=== PATIENT | female | born 1970 | race Caucasian/White ===

== ENCOUNTER 2024-11-12 18:21 | Observation (INO) | payer OTHER, SELFPAY ==
[2024-11-12 12:55] VITALS: BP 120/65
[2024-11-12 13:13] LABS: % Immature Granulocytes 0.2 % (0-0.5); % Lymphocytes 29.7 % (20.5-51.1); % Monocytes 8.5 % (1.7-9.3); % Neutrophils 58.6 % (42.2-75.2); Absolute Basophils 0.1 10^3/uL (0-0.2); Absolute Eosinophils 0.1 10^3/uL (0-0.7); Absolute Lymphocytes 1.5 10^3/uL (1.2-3.4); Absolute Monocytes 0.4 10^3/uL (0.1-0.6); Hematocrit 38.8 % (37.0-47.0); Hemoglobin 13.1 g/dL (12.0-16.0); Mean Corp Hgb Conc. 33.8 g/dL (33.0-37.0); Mean Corpuscular Hgb 29.8 pg (27.0-31.0); Mean Corpuscular Volume 88.2 fL (81.0-99.0); Mean Platelet Volume 8.8 fL (7.4-10.4); Nucleated Red Blood Cells % 0 %; Platelet Count 309 10^3/uL (130-400); Red Cell Dist. Width 12.3 % (11.5-14.5); White Blood Cell Count 5.1 10^3/uL (4.8-10.8)
[2024-11-12 13:26] LABS: ALT (SGPT) 17 U/L (0-35); AST (SGOT) 22 U/L (14-36); Albumin 4.2 g/dl (3.5-5.0); Alkaline Phosphatase 47 U/L (38-126); Blood Urea Nitrogen 12 mg/dl (7-17); Calcium 9.4 mg/dl (8.4-10.2); Carbon Dioxide 24 mmol/L (22-30); Chloride 107 mmol/L (98-107); Glucose 95 mg/dl (70-99); HCG, Serum Qualitative Screen Negative; Potassium 4.4 mmol/L (3.5-5.1); Sodium 139 mmol/L (135-145); Total Bilirubin 0.7 mg/dl (0.2-1.3); Total Protein 6.7 g/dl (6.3-8.2); eGFR > 60.00
[2024-11-12 14:27] VITALS: BP 116/50
--- NOTE | 2024-11-12 14:28 | ED.GENMED ---
History of Present Illness
<VIANNEY Pack - Last Filed: 11/12/24 18:52>
General
Chief Complaint: Dizziness
Source: patient
Exam Limitations: none
Time Seen by Provider: 11/12/24 14:08
History of Present Illness
History of Present Illness:
53 y/o F patient with a PMH of migraines and acid reflux presenting to the ED c/o dizziness x 2 days, says dizzy sensation occurred suddenly at work after feeling a pain between her shoulder blades. Pt reports a sensation of all over numbness since
that episode. States she is also getting a pain above her right eye that comes and goes and makes her want to squint. Pt states nothing improves the dizziness, she tried taking aspirin yesterday with no relief, states it is worse with her eyes
closed. Romberg test positive on physical exam. She reports feeling foggy but denies confusion. Last migraine in August, LMP: 10/04/24. Denies syncope, LOC, falling, imbalance, abnormal gait,visual changes, hearing loss, tinnitus, palpitations,
chest pain, N/V/D, abdominal pain, weakness, loss of sensation.
Past History
<VIANNEY Pack - Last Filed: 11/12/24 18:52>
Past History
ED Past Medical History: GERD and Other (Migraines)
Social History
Tobacco: Former smoker
Alcohol: Occasional
Drug: None
Review of Systems
<VIANNEY Pack - Last Filed: 11/12/24 18:52>
Review of Systems
Constitutional: Reports no symptoms
EENT: Reports no symptoms
Respiratory: Reports no symptoms
Cardiac: Reports chest pain (slight, radiating from back)
ABD/GI: Reports no symptoms
: Reports no symptoms
Musculoskeletal: Reports back pain
Skin: Reports no symptoms
Neurological: Reports dizzy, headache and numbness
Endocrine: Reports no symptoms
Hematologic/Lymphatic: Reports no symptoms
Phy Exam
<Ildefonso Chávez [facility] - Last Filed: 11/12/24 18:52>
General Physical Exam
General Presentation: well appearing and no apparent distress
General age: appears stated age
General Skin: warm
General Habitus: normal
General Mental: alert
General Hydration: appears well hydrated
Eye Exam
Eye Exam: conjunctiva normal
Pupil Exam: Bilateral: round and reactive
Pupil and Lens Exam: round pupil: Bilateral
Cardiovascular Exam
Cardiovascular Exam: regular rate/rhythm, no gallop, no murmur and normal peripheral pulses
Pulmonary Exam
Pulmonary Exam: lungs clear and no respiratory distress
Gastrointestinal Exam
Gastrointestinal Exam: normal bowel sounds, non tender and no pulsatile mass
Neurological Exam
Neurological Exam: alert, oriented x3, no sensory deficits, normal gait and other (+ romberg)
Mental
Describe Speech: normal speech
Cranial
Cranial Nerves: normal
Cerebellar
Cerebellar Function: normal finger to nose and normal heel to koenig
Course
<Ildefonso Chávez [facility] - Last Filed: 11/12/24 18:52>
Orders/Labs/Results
Orders:
Orders
11/12/24 12:58
Electrocardiogram (*1) Urgent
Reason for Study: Vertigo / Dizzy
EKG- Treatment ONCE
Test Result ONCE
11/12/24 13:04
Complete Blood Count/With Diff Urgent
Comprehensive Metabolic Panel Urgent
HCG, Serum Qualitative Screen Urgent
11/12/24 14:58
CT Chest Angio W/wo Iv Contras Urgent
Comment:
Reason For Exam: Sudden scapular pain with disequilibrium
CT Head W/o Iv Contrast Urgent
Comment:
Reason For Exam: Scapular pain/disequilibrium
CT Neck Angio W/wo Iv Contrast Urgent
Comment:
Reason For Exam: Scapular pain/disequilibrium
IV Insert/Care/Rem.- Treatment PRN
0.9% Sodium Chloride 500 ml [Nss] 500 ml IV BOLUS
11/12/24 17:55
Admit/Transfer Patient As Directed
Co-Sign Provider:
Level of Care: Observation services
Assign to:: Telemetry
Physician / Group: epi camejo
Diagnosis: Vertigo
Reason for Telemetry: CVA/TIA
Date to Stop Telemetry: 11/15/24
Time to Stop Telemetry: 11:00
Code Status As Directed
Resuscitation Status: Full Code
PRN Pain Medication Management As Directed
May give lesser potent ordered pain med per pt: Yes
preference::
Protocol:: Medication orders for pain may be administered in a
manner that supports deferring to patient preference
when the pt is:
- Requesting an ordered lesser potent pain medication.
Least to most potent pain medications are defined
as: acetaminophen < NSAID < tramadol < opioids
(morphine, oxycodone, hydromorphone).
- Requesting a lesser dose of the same medication IF
ORDERED.
- Requesting a less intrusive route of administration
if both routes are prescribed by the provider (PO <
IV).
11/15/24 11:00
DC Protocol for Telemetry ONCE
11/12/24 13:04
11/12/24 13:04
Vital Signs
Initial and Last Documented VS:
Initial Vital Signs
Temp Pulse Resp BP Pulse Ox
98.8 F 65 20 120/65 98
11/12/24 12:55 11/12/24 12:55 11/12/24 12:55 11/12/24 12:55 11/12/24 12:55
Last Documented Vital Signs
Temp Pulse Resp BP Pulse Ox
98.8 F 55 16 106/57 100
11/12/24 12:55 11/12/24 18:03 11/12/24 18:03 11/12/24 18:00 11/12/24 18:00
<Blayne Martinez MD - Last Filed: 11/12/24 18:51>
Orders/Labs/Results
Orders:
Orders
11/12/24 12:58
Electrocardiogram (*1) Urgent
Reason for Study: Vertigo / Dizzy
EKG- Treatment ONCE
Test Result ONCE
11/12/24 13:04
Complete Blood Count/With Diff Urgent
Comprehensive Metabolic Panel Urgent
HCG, Serum Qualitative Screen Urgent
11/12/24 14:58
CT Chest Angio W/wo Iv Contras Urgent
Comment:
Reason For Exam: Sudden scapular pain with disequilibrium
CT Head W/o Iv Contrast Urgent
Comment:
Reason For Exam: Scapular pain/disequilibrium
CT Neck Angio W/wo Iv Contrast Urgent
Comment:
Reason For Exam: Scapular pain/disequilibrium
IV Insert/Care/Rem.- Treatment PRN
0.9% Sodium Chloride 500 ml [Nss] 500 ml IV BOLUS
11/12/24 17:55
Admit/Transfer Patient As Directed
Co-Sign Provider:
Level of Care: Observation services
Assign to:: Telemetry
Physician / Group: epi camejo
Diagnosis: Vertigo
Reason for Telemetry: CVA/TIA
Date to Stop Telemetry: 11/15/24
Time to Stop Telemetry: 11:00
Code Status As Directed
Resuscitation Status: Full Code
PRN Pain Medication Management As Directed
May give lesser potent ordered pain med per pt: Yes
preference::
Protocol:: Medication orders for pain may be administered in a
manner that supports deferring to patient preference
when the pt is:
- Requesting an ordered lesser potent pain medication.
Least to most potent pain medications are defined
as: acetaminophen < NSAID < tramadol < opioids
(morphine, oxycodone, hydromorphone).
- Requesting a lesser dose of the same medication IF
ORDERED.
- Requesting a less intrusive route of administration
if both routes are prescribed by the provider (PO <
IV).
11/15/24 11:00
DC Protocol for Telemetry ONCE
11/12/24 13:04
11/12/24 13:04
Vital Signs
Initial and Last Documented VS:
Initial Vital Signs
Temp Pulse Resp BP Pulse Ox
98.8 F 65 20 120/65 98
11/12/24 12:55 11/12/24 12:55 11/12/24 12:55 11/12/24 12:55 11/12/24 12:55
Last Documented Vital Signs
Temp Pulse Resp BP Pulse Ox
98.8 F 55 16 106/57 100
11/12/24 12:55 11/12/24 18:03 11/12/24 18:03 11/12/24 18:00 11/12/24 18:00
<VIANNEY Pack - Last Filed: 11/12/24 18:52>
*Critical Care Note
Total Time (30-74mins, 75-104mins- exclusive of procedures): Not Applicable
<Blayne Martinez MD - Last Filed: 11/12/24 18:51>
*Radiology
Radiology exam reviewed: radiology read reviewed (Negative CT head CT angio chest and CT neck)
*Pulse Oximetry
Patient hypoxic: no
*EKG
Interpreted by ED Provider?: Yes
Interpretation: normal
Comparison EKG: no comparison EKG present
Heart Rate: 62
Rate: normal
Rhythm: sinus
[place]: normal axis
Interval: normal interval
QRS Pattern: normal QRS
Ischemia: no ischemia
<Blayne Martinez MD - Last Filed: 11/12/24 18:51>
Update Note
Update Note:
Seen by neurology. Disequilibrium. No dissection or acute vascular issue. However recommend admission for further care
ED Attending Note
<VIANNEY Pack - Last Filed: 11/12/24 18:52>
-
Portions of this chart may have been created with voice recognition software.� Occasional wrong word or��sound alike� substitutions may have occurred due to the inherent limitations of voice recognition software.
<Blayne Martinez MD - Last Filed: 11/12/24 18:51>
ED Attending Note
Patient seen and examined by attending physician: Yes
I performed the substantive portion of visit, reviewed & personally made and approve the management plan that is documented in note by myself or MIRTA.: Yes
ED Attending Note:
Patient seen with student. 53-year-old female healthy. Sudden onset of scapular pain while at work last evening. Nontraumatic. This did not last long but was followed by disequilibrium and describing some episodes of almost near syncope. Today
the scapular pain is resolved but she has had ongoing episodes of disequilibrium feeling like her balance is off and intermittent tingling of her arms and legs.
GENERAL: Alert and oriented in no apparent distress
EYE: Orbits normal.
NECK: Supple, no significant adenopathy.
ENT: Pharynx without erythema
CARDIAC: Regular rate and rhythm without any obvious murmurs.
LUNGS: Clear breath sounds,normal
ABDOMEN: Soft, without focal tenderness or distention
NEUROLOGICAL: Alert and oriented , grossly non-focal. Blfofb-hu-icel normal. No drift. Dovb-co-jiml normal. Gait normal. Questionable slightly positive Romberg.
SKIN: Warm and dry, no rash or lesion, no discoloration, skin intact.
MUSCULOSKELETAL: No edema,no deformity.Good color
PSYCH: Normal and appropriate interaction.
Impression. Sudden scapular pain. Warrants dissection rule out. Will also evaluate the vascular system of the neck. Discussed with neurology.
Discharge Plan
Departure
Patient Disposition: Admit
Date of Disposition: 11/12/24
Time of Disposition: 17:37
Presentation/result/management discussed w/ accepting MD/DO: Neurology
Discharge Problem:
Disequilibrium, Transient scapular pain
Interventions
Interventions:
*Risk Screen - Suicide Last Done: 11/12/24 12:55
*General Assessment Last Done: 11/12/24 12:55
*Neglect/Abuse Screening Last Done: 11/12/24 14:29
*ED- Fall Risk Assessment Last Done: 11/12/24 14:09
*ED COVID-19 Vaccine History Last Done: 11/12/24 14:09
ED- Neurological Assessment Last Done: 11/12/24 14:30
ED Swallowing Screen Last Done: 11/12/24 14:30
--- NOTE | 2024-11-12 15:04 | CON.NEURO ---
Consultation
Order
Date of Consultation: 11/12/24
Requesting Provider: Blayne Martinez M.D.
Reason for Consult: Imbalance
Neurology Consultation Note.
HPI: This is a 53-year-old right-handed woman who presented to [facility] on November 12, 2024 with multiple symptoms.
According to the patient she developed an acute sharp, stabbing pain under the left shoulder blade while picking up dinner plates. This was reportedly followed by a sensation of the room tilting, loss of balance, lightheadedness, and feeling like
she was going to pass out.
The patient reports ongoing symptoms of dizziness, lightheadedness, and intermittent numbness in fingers and toes. The numbness is described as feeling like 'bugs under my skin' before the entire hand goes numb, affecting all fingers on both hands
simultaneously. This sensation is triggered when picking up a phone. The patient also experienced extreme thirst yesterday.
The initial episode lasted on and off until about 11 PM last night. The patient took Tylenol for the headache around 6:30 PM, which provided relief within 30 minutes. However, she woke up with a mild headache this morning.
Ms. Bautista reports a history of migraines, for which she takes eletriptan. These migraines are described as feeling 'like I got stabbed in the head with a butter knife' and are accompanied by photophobia and nausea.
Concerned about her condition, the patient went to a friend's house yesterday to avoid driving. She was able to drive home around 11 PM and took a baby aspirin before bed. This morning, still feeling unwell, Ms. Bautista visited urgent care to check her
blood pressure before coming to the ER
ER VS: 120/65, 65�56, afebrile
EKG:NSR, QTc Int : 414 ms
PDMP: None
Labs:normal CBC, COMP
PMH: Migraine wo aura
PSH: C-sections, knee arthroscopies
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
FH: Son�migraine
All:NKDA
ROS: Constitutional: Negative. Negative for chills, fever and unexpected weight change.
HENT: Negative for ear pain, hearing loss, tinnitus and trouble swallowing.
Eyes: Negative. Negative for photophobia, pain and visual disturbance.
Respiratory: Negative for cough, choking and shortness of breath.
Cardiovascular: Negative for chest pain, palpitations and leg swelling.
Gastrointestinal: Negative for abdominal pain and vomiting.
Endocrine: Negative. Negative for cold intolerance.
Genitourinary: Negative for dysuria, flank pain and urgency.
Musculoskeletal: Negative for back pain, gait problem, neck pain and neck stiffness.
Skin: Negative for rash.
Allergic/Immunologic: Negative. Negative for immunocompromised state.
Neurological: Positive for imbalance, headache, dizziness, paresthesias
Psychiatric/Behavioral: Negative for behavioral problems, confusion and hallucinations.
General: Well developed. In no acute distress.
Cardio: Regular rate and rhythm without murmur. Extremities are without cyanosis or edema.
Neuro:
Mental Status: Alert, oriented to person, place, and date. Normal attention and recall. Good fund of knowledge. Follows complex requests across the midline. Comprehension, naming, and repetition intact.
Cranial Nerves: Pupils are equally round and reactive to light. EOMs full. Visual verdin full to confrontation. No ptosis. No nystagmus. V1-V3 intact to light touch and pinprick bilaterally, symmetric. Face symmetric. Normal hearing AU. The
palate elevated well. SCMs and traps 5/5. Tongue midline. No dysarthria.
Motor: Normal bulk and tone. No pronator or arm drift. Strength 5/5 throughout. No clonus.
Sensory: Normal LT
Coordination: No dysmetria or tremor.
Gait: deferred
Assessment and Plan:
I. Migraine without aura
II. Intermittent vertigo
III. Paresthesias
-fall precautions
-Please obtain brain MRI without gadolinium
-Please check ESR, CRP urine tox
-IV Toradol 30 mg, Reglan 10 mg, Benadryl 25 mg Q8h PRN for moderate to severe headache.
-PT
-Will follow
I personally reviewed all radiology and labs along with past medical records pertinent to current medical problems. Total time spent in patient care is 64 minutes.
Thank you for allowing us to participate in the care of this patient. We will continue to follow. Please do not hesitate to contact us with any questions or concerns.
Subjective/Objective
Subjective Data
Date of Service: November 12, 2024
Objective Data
Vital Signs
Temp Pulse Resp BP Pulse Ox
37.1 C 56 16 116/50 99
11/12/24 12:55 11/12/24 14:30 11/12/24 14:30 11/12/24 14:27 11/12/24 14:28
Lab Results
11/12/24 13:04
11/12/24 13:04
Sodium 139 mmol/L (135-145) 11/12/24 13:04
Potassium 4.4 mmol/L (3.5-5.1) 11/12/24 13:04
BUN 12 mg/dl (7-17) 11/12/24 13:04
Glucose 95 mg/dl (70-99) 11/12/24 13:04
Calcium 9.4 mg/dl (8.4-10.2) 11/12/24 13:04
Patient Allergies
NKA - No Known Allergies Allergy (Uncoded 11/12/24 12:56)
Unknown
Medications
-
Active Medications
Generic Name Dose Route Start Last Admin
Trade Name Freq PRN Reason Stop Dose Admin
Sodium Chloride 500 mls @ 250 mls/hr 11/12/24 14:58
Nss IV 11/12/24 16:57
BOLUS ONE
Vital Signs and Labs
-
Vital Signs and Labs:
Vital Signs
Temp Pulse Resp BP Pulse Ox
37.1 C 56 16 116/50 99
11/12/24 12:55 11/12/24 14:30 11/12/24 14:30 11/12/24 14:27 11/12/24 14:28
Lab Results
11/12/24 13:04
11/12/24 13:04
Sodium 139 mmol/L (135-145) 11/12/24 13:04
Potassium 4.4 mmol/L (3.5-5.1) 11/12/24 13:04
BUN 12 mg/dl (7-17) 11/12/24 13:04
Glucose 95 mg/dl (70-99) 11/12/24 13:04
Calcium 9.4 mg/dl (8.4-10.2) 11/12/24 13:04
Medications
-
Medications:
Generic Name Dose Route Start Last Admin
Trade Name Freq PRN Reason Stop Dose Admin
Sodium Chloride 500 mls @ 250 mls/hr 11/12/24 14:58 11/12/24 15:07
Nss IV 11/12/24 16:57 500 mls
BOLUS ONE Administration
[2024-11-12] MEDS: NSS 500 IV (15:07)
[2024-11-12 18:00] VITALS: BP 106/57
--- NOTE | 2024-11-12 18:00 | HPS.HSE ---
Family Physician
-
Family Physician: Angelina Del Valle
Chief Complaint
-
Dizziness
History of Present Illness
Patient is a pleasant 53 years old with history of GERD, migraine who came to the ER with dizziness for 2 days.
Started yesterday when she was picking up plates at dinner.
Associated with numbness in hands and feet.
Also dizziness associated with pain in the back and shoulder blades. Patient with history of migraine but no history of vertigo.
Patient went to urgent care today and directed to go to the ER.
No chest pain shortness of breath, no abdominal pain, no nausea or vomiting.
Medical History
Past Medical History
Past Medical History: Reports GERD and Other (Migraine)
Past Surgical History: Reports and Orthopedic
Social History
Tobacco: Non-smoker
Alcohol: Occasional
Drug: None
Personal: Partner
Employment: Employed
Family History
Family History: CAD and Other (TIA)
Allergies / Home Medications
Allergies reflects when Allergies were last updated in [facility].
Home Medications with original date entered in [facility]
Allergy/Medication List:
Allergies
Allergy/AdvReac Type Severity Reaction Status Date / Time
NKA - No Known Allergies Allergy Unknown Uncoded 11/12/24 12:56
Review of Systems
-
A 12 point ROS was completed and negative except as noted: Yes
Constitutional: Reports Fatigue; Denies Fever, Weight Gain, Weight Loss or Sleep Disturbance
EENT: Denies Tearing, Sore Throat, Mouth Pain, Mouth Swelling or Runny Nose
Respiratory: Denies Cough, Hemoptysis or Trouble Breathing
Cardiac: Denies Chest Pain, Diaphoresis, Palpitations or Syncope
Abdomen/GI: Denies Abdominal Pain, Nausea, Vomiting, Diarrhea, Constipated, Bloody Stools or Black Stools
: Denies Dysuria, Frequency, Flank Pain, Incontinence, Difficulty Voiding, Urgency, Bleeding or Dark Urine
Musculoskeletal: Reports Muscle Pain; Denies Joint Pain, Joint Swelling, Muscle Stiffness or Edema
Skin: Denies Itching or Rash
Neurological: Reports Dizzy, Headache, Weakness and Numbness
Endocrine: Denies Polyuria, Polydipsia or Temp Intolerance
Hematologic/Lymphatic: Denies Bleeding, Swollen Glands or Bruising
Psych: Reports Calm; Denies Depression, Anxiety or Panic Disorder
Physical Exam
Vital Signs
Vital Signs
Temp Pulse Resp BP Pulse Ox
98.8 F 56 16 116/50 99
11/12/24 12:55 11/12/24 14:30 11/12/24 16:00 11/12/24 14:27 11/12/24 14:28
Physical Exam
General: Well Developed, Well Nourished, No Apparent Distress, Comfortable and Good Appetite; No Pain, Chills or Sweats
HEENT: NormoCephalic, Moist mucous membranes, Atraumatic, Good Dentition, PERRLA, Nose Appears Normal and Ears Appear Normal
Respiratory: Clear
Cardiac: S1/S2 and Regular Rhythm
Breast: Deferred by me
GI: Soft, Non Tender, Non Distended and Normal Bowel Sounds
Genito-urinary: Deferred by me
Musculoskeletal: No Clubbing, No Cyanosis and No Edema
Skin: Warm; No Rash, Jaundice, Ulcers, Lesions or Decubitus Ulcers
Neuro: Awake, Alert, Oriented, AO x 3, No Motor Deficits, Nonfocal/grossly intact and Cranial Nerves Intact
Hematologic/Lymphatic: No Lymphadenopathy
Psych: Calm
Laboratory Results
-
11/12/24 13:04
11/12/24 13:04
Laboratory Results
Total Bilirubin 0.7 mg/dl (0.2-1.3) 11/12/24 13:04
AST 22 U/L (14-36) 11/12/24 13:04
ALT 17 U/L (0-35) 11/12/24 13:04
Alkaline Phosphatase 47 U/L (38-126) 11/12/24 13:04
Data Reviewed
-
Diagnostic Radiology: Report Reviewed by me
CT Scan: Report Reviewed by me
Medical Tests (Nuc Med, Echo, EKG etc): Report Reviewed by me
Lab Data: Labs Reviewed by me
Old Records: Reviewed
Impression/Plan
-
IMPRESSION:
Patient is a pleasant 53 years old with history of migraine, GERD who came to the ER with dizziness, lightheadedness, seen by neurology in the ER, advised Reglan/Toradol and MRI brain which is pending
Assessment/plan:
Dizziness associated with, possible atypical migraine versus vertigo.
Rule out CVA.
Seen by neurology in the ER.
Continue Toradol/Reglan/Benadryl.
MRI brain without contrast.
CT head done in the ER, CTA head and neck, CT chest angiogram, report pending
CODE STATUS: Full code
DVT prophylaxis: Scd
Diet: Regular diet.
Total time spent on today's encounter was 55 minutes which included time spent in counseling the patient/family regarding diagnosis and treatment plan as listed above, goals of care, and symptom management. Case was discussed with nursing staff,
specialists, and care coordinators/case management. All labs and imaging personally reviewed by me. Remainder the time spent in detailed review of previous records, lab data, imaging, and other medical provider documentation.
[2024-11-12 19:00] VITALS: BP 106/65
[2024-11-12 20:46] VITALS: BP 113/68
--- NOTE | 2024-11-12 21:05 | PTCARENOTE ---
Pt arrived from the ED via stretcher. Patient AAOx3, VSS. Patient [id number] into the room. No complaints of dizziness or light headedness at this time. Only complains of a headache. Passed swallow screen. Updated on plan of care, call [facility] is
within reach.
[2024-11-12] MEDS: TORADOL 10 MG IV (21:30)
[2024-11-12 23:37] VITALS: BP 96/56
[2024-11-12] MEDS: BENADRYL 25 MG PO (23:47)
[2024-11-13 03:29] VITALS: BP 94/60
[2024-11-13 05:51] LABS: Hematocrit 36.7 % (37.0-47.0); Hemoglobin 12.3 g/dL (12.0-16.0); Mean Corp Hgb Conc. 33.5 g/dL (33.0-37.0); Mean Corpuscular Hgb 29.5 pg (27.0-31.0); Mean Platelet Volume 9.8 fL (7.4-10.4); Platelet Count 300 10^3/uL (130-400); Red Blood Cell Count 4.17 10^6/uL (4.20-5.40); Red Cell Dist. Width 12.2 % (11.5-14.5); White Blood Cell Count 5.8 10^3/uL (4.8-10.8)
[2024-11-13 06:06] LABS: Blood Urea Nitrogen 14 mg/dl (7-17); Carbon Dioxide 22 mmol/L (22-30); Chloride 109 mmol/L (98-107); Estimated Creatinine Clearance 101 ml/min; Glucose 71 mg/dl (70-99); Potassium 4.1 mmol/L (3.5-5.1); Sodium 140 mmol/L (135-145); eGFR > 60.00
[2024-11-13] MEDS: REGLAN 10 MG IV (06:20)
[2024-11-13 07:55] VITALS: BP 85/52
[2024-11-13] MEDS: PEPCID 20 MG PO (08:44)
--- NOTE | 2024-11-13 09:05 | W.PN.HOSP.TC ---
Today's Communication/Plan
-
await repeat afternoon BP check and MRI results
PT eval
possible DC later today
Assessment / Plan
Assessment / Plan
Assessment:
Migraine without aura, associated paraesthesias (transient)
Intermittent Vertigo
- CT head, CTA negative
- MRI pending to evaluate mass, CVA
- Neuro consulted; UDS/ESR/CRP pending
- prn symptom control
Hypotension, asymptomatic
- IVF bolus and re-assess in afternoon
DVT ppx: SCDs
Code: Full
Anticipated Discharge: Within 24 hours
Subjective/Interval History
-
Date of Service: November 13, 2024
resting comfortably,
has a 2/10 frontal headache (She reports it as a migraine), but no dizziness, lightheadedness
reports bilateral hand/feet numbness typically with her migraines, but denies focal weakness
MRI pending.
Objective Data
-
Labs:
Laboratory Results
11/13/24
04:20
WBC 5.8
Hgb 12.3
Hct 36.7 L
Plt Count 300
Sodium 140
Potassium 4.1
Chloride 109 H
Carbon Dioxide 22
BUN 14
Creatinine 0.7
Glucose 71
Calcium 9.0
Vital Signs:
Vital Signs
Temp Pulse Resp BP Pulse Ox
98.1 F 59 15 94/60 98
11/13/24 03:29 11/13/24 03:29 11/13/24 03:29 11/13/24 03:29 11/13/24 03:29
I&O
11/12/24 11/13/24 11/14/24
06:59 06:59 06:59
Intake Total 480 / 480
Balance 480 / 480
Physical Exam
-
General: No Apparent Distress
HEENT: Normocephalic and Atraumatic
Cardiac: Regular Rhythm and S1/S2
GI: Soft
Genito-urinary: No Costovertebral Tender
Neuro: AO x 3
Hematologic / Lymphatic: No Lymphadenopathy
Psych: Calm
Data Reviewed
-
Total Time Spent with Patient (in minutes): 41
Labs: Labs Reviewed by me
--- NOTE | 2024-11-13 09:55 | CM ---
Addendum entered by Meek Lockhart 11/13/24 12:45:
Discharge order noted. Pt is aware and she stated her mother will transport home.
No after care VN services needs identified.
D/C plan: Home no needs. Mother to transport.
Original Note:
CM following re: discharge planning.
Reviewed pt's chart, met with pt.
Pt is a 3 year old female, admitted with OBS status and primary dx of Vertigo. OBS status explained to the pt, pt expressed her understanding, OBS letter signed by the pt, placed on chart, pt has a copy.
Pt reports she lives with 3 adult children in a 2SH, 1 step to enter. pt described herself as independent in all ara4es [employer].
PCP: Angelina Del Valle
Pharmacy: [facility]
D/C plan: home with anticipated no needs. Son to transport at discharge.
CM will follow with discharge plan updates as hospitalization progresses
[2024-11-13] MEDS: NSS 500 IV (10:02)
[2024-11-13 10:22] LABS: Erythrocyte Sed Rate 6 mm/hour (0-20)
[2024-11-13 11:20] VITALS: BP 104/57
--- NOTE | 2024-11-13 11:23 | W.PN.NEURO.1 ---
Today's Communication / Plan
-
.
Subjective/Objective
Subjective Data
Date of Service: November 13, 2024
Neurology follow-up note
24-hour events, hypotensive down to 85/52, afebrile.
Ms. Xiong endorses bilateral mild nonpositional retro-orbital headache. No recurrent spells of disequilibrium. She denies having change in vision, strength, sensation, lightheadedness.
Brain MRI without mey�no acute abnormalities, Two adjacent mucous retention cysts in the right maxillary sinus measuring 1.8 cm and 1.4 cm. Mild mucosal thickening of the left sphenoid sinus. The mastoid air cells are clear.
ESR�normal, CRP�pending.
PMH: migraine wo aura
PSH: C-sections, knee arthroscopies
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
FH: Son�migraine
All:NKDA
ROS: Constitutional: Negative. Negative for chills, fever and unexpected weight change.
HENT: Negative for ear pain, hearing loss, tinnitus and trouble swallowing.
Eyes: Negative. Negative for photophobia, pain and visual disturbance.
Respiratory: Negative for cough, choking and shortness of breath.
Cardiovascular: Negative for chest pain, palpitations and leg swelling.
Gastrointestinal: Negative for abdominal pain and vomiting.
Endocrine: Negative. Negative for cold intolerance.
Genitourinary: Negative for dysuria, flank pain and urgency.
Musculoskeletal: Negative for back pain, gait problem, neck pain and neck stiffness.
Skin: Negative for rash.
Allergic/Immunologic: Negative. Negative for immunocompromised state.
Neurological: Positive for headache
Psychiatric/Behavioral: Negative for behavioral problems, confusion and hallucinations.
General: Well developed. In no acute distress.
Cardio: Regular rate and rhythm without murmur. Extremities are without cyanosis or edema.
Neuro:
Mental Status: Alert, oriented to person, place, and date. Normal attention and recall. Good fund of knowledge. Follows complex requests across the midline. Comprehension, naming, and repetition intact.
Cranial Nerves: Pupils are equally round and reactive to light. EOMs full. Visual verdin full to confrontation. No ptosis. No nystagmus. V1-V3 intact to light touch and pinprick bilaterally, symmetric. Face symmetric. Normal hearing AU. The
palate elevated well. SCMs and traps 5/5. Tongue midline. No dysarthria.
Motor: Normal bulk and tone. No pronator or arm drift. Strength 5/5 throughout. No clonus.
Sensory: Normal LT
Coordination: No dysmetria or tremor.
Gait: deferred
Assessment and Plan:
I. Migraine without aura
II. Intermittent vertigo
III. Hypertension
-fall precautions
-Hypertension workup
-Outpatient ENT and neurology follow-up
-Please follow-up magnesium, CRP, TSH.
-IV Toradol 30 mg, Reglan 10 mg, Benadryl 25 mg Q8h PRN for moderate to severe headache.
-PT
- DVT prophylaxis
I personally reviewed all radiology and labs along with past medical records pertinent to current medical problems. Total time spent in patient care is 34 minutes.
Thank you for allowing us to participate in the care of this patient. Please do not hesitate to contact us with any questions or concerns.
Objective Data
Vital Signs
Temp Pulse Resp BP Pulse Ox
36.6 C 62 16 85/52 96
11/13/24 07:55 11/13/24 07:55 11/13/24 07:55 11/13/24 07:55 11/13/24 07:55
Lab Results
11/13/24 04:20
11/13/24 04:20
Sodium 140 mmol/L (135-145) 11/13/24 04:20
Potassium 4.1 mmol/L (3.5-5.1) 11/13/24 04:20
BUN 14 mg/dl (7-17) 11/13/24 04:20
Glucose 71 mg/dl (70-99) 11/13/24 04:20
Calcium 9.0 mg/dl (8.4-10.2) 11/13/24 04:20
Patient Allergies
No Known Allergies Allergy (Unverified 11/12/24 20:38)
Vital Signs and Labs
-
Vital Signs and Labs:
Vital Signs
Temp Pulse Resp BP Pulse Ox
36.6 C 62 16 85/52 96
11/13/24 07:55 11/13/24 07:55 11/13/24 07:55 11/13/24 07:55 11/13/24 07:55
Lab Results
11/13/24 04:20
11/13/24 04:20
Sodium 140 mmol/L (135-145) 11/13/24 04:20
Potassium 4.1 mmol/L (3.5-5.1) 11/13/24 04:20
BUN 14 mg/dl (7-17) 11/13/24 04:20
Glucose 71 mg/dl (70-99) 11/13/24 04:20
Calcium 9.0 mg/dl (8.4-10.2) 11/13/24 04:20
Medications
-
Medications:
Generic Name Dose Route Start Last Admin
Trade Name Freq PRN Reason Stop Dose Admin
Acetaminophen 650 mg 11/12/24 20:36
Acetaminophen 325 Mg Tablet PO 12/10/24 20:35
Q4HPRN PRN
mild pain/JOSÉ/temp> 100.4F
Aspirin 81 mg 11/13/24 08:19
Aspirin 81 Mg (Enteric Coated) Tablet PO 12/11/24 08:18
DAILYPRN PRN
chest pain
Bisacodyl 10 mg 11/12/24 20:36
Bisacodyl 10 Mg Rectal Suppository RECTAL 12/10/24 20:35
[id number] PRN
constipation
Diphenhydramine HCl 25 mg 11/12/24 20:36 11/12/24 23:47
Diphenhydramine 25 Mg Capsule PO 12/10/24 20:35 25 mg
Q8HPRN PRN Administration
Migraine
Famotidine 20 mg 11/13/24 08:00 11/13/24 08:44
Famotidine 20 Mg Tablet PO 12/11/24 07:59 20 mg
DAILY RADHIKA Administration
Ketorolac Tromethamine 10 mg 11/12/24 20:36 11/12/24 21:30
Ketorolac 15 Mg/Ml Injection IV 11/17/24 20:35 10 mg
Q6HPRN PRN Administration
moderate pain
Metoclopramide HCl 10 mg 11/12/24 20:36 11/13/24 06:20
Metoclopramide 10 Mg/2 Ml Vial IV 12/10/24 20:35 10 mg
Q6HPRN PRN Administration
Migraine
Polyethylene Glycol 17 grams 11/12/24 20:36
Polyethylene Glycol Powder 17 Grams Packet PO 12/10/24 20:35
DAILYPRN PRN
constipation
Senna/Docusate Sodium 1 tablet 11/12/24 20:36
Docusate W/Senna (Genesis-Colace) Tablet PO 12/10/24 20:35
BIDPRN PRN
constipation
Sodium Chloride 0 flush 11/12/24 21:00
Sodium Chloride 0.9% (Flush) Syringe IV 12/10/24 20:59
PER PROTOCOL RADHIKA
Home Medications
-
Home Medications
acetaminophen 500 mg tablet (Tylenol Extra Strength) 500 mg PO Q6HPRN PRN mild pain 11/12/24
aspirin 81 mg tablet,delayed release 81 mg PO DAILYPRN PRN chest pain 11/12/24
eletriptan 40 mg tablet 40 mg PO DAILYPRN PRN migraine 11/12/24
famotidine 20 mg tablet 40 mg PO DAILYPRN PRN heartburn 11/12/24
naproxen 500 mg tablet 500 mg PO BIDPRN PRN mild pain 11/12/24
--- NOTE | 2024-11-13 12:39 | W.DS.TRANS ---
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
-
Discharge Instructions:
Discharge Diagnosis/Procedures migraine/headache
Diet Regular
Activity As tolerated
Instructions:
Stand-Alone Forms:
Changes to Home Medications: No
Discharge Medications:
DC Medications w/original date entered in [employer]
acetaminophen 500 mg tablet (Tylenol Extra Strength) 500 mg PO Q6HPRN PRN mild pain 11/12/24
aspirin 81 mg tablet,delayed release 81 mg PO DAILYPRN PRN chest pain 11/12/24
eletriptan 40 mg tablet 40 mg PO DAILYPRN PRN migraine 11/12/24
famotidine 20 mg tablet 40 mg PO DAILYPRN PRN heartburn 11/12/24
naproxen 500 mg tablet 500 mg PO BIDPRN PRN mild pain 11/12/24
Home Medication Changes
Pending Results: No
Total time spent discharging patient (in min): 42
[2024-11-13 15:05] LABS: C-Reactive Protein < 5.00 mg/L (0.0-10.00)
== END 2024-11-13 13:21 | disposition home or self-care (01) ==
LOC: 4 EAST ACU 18:21
PROVIDERS: ADMITTING PHYSICIAN General Practice; ATTENDING PHYSICIAN Internal Medicine; EMERGENCY PHYSICIAN Emergency Medicine; FAMILY PHYSICIAN Family Medicine; OTHER PHYSICIAN Psychiatry & Neurology Neurology
DX: G43.009 Migraine without aura, not intractable, without status migrainosus (principal); R42 Dizziness and giddiness; K21.9 Gastro-esophageal reflux disease without esophagitis; M25.519 Pain in unspecified shoulder; I45.10 Unspecified right bundle-branch block; J34.1 Cyst and mucocele of nose and nasal sinus; I95.9 Hypotension, unspecified; I10 Essential (primary) hypertension; H57.11 Ocular pain, right eye; R26.89 Other abnormalities of gait and mobility; R20.0 Anesthesia of skin; R20.2 Paresthesia of skin; Z82.49 Family history of ischemic heart disease and other diseases of the circulatory system; Z87.891 Personal history of nicotine dependence
CPT/HCPCS: 70450; 70498; 70551; 71275; 80048; 80053; 84703; 85025; 85027; 85652; 86140; 93005; 96360; 96361; 99285; G0378; Q9967